=== PATIENT | male | born 1945 | race Caucasian/White ===

== ENCOUNTER 2023-09-03 16:00 | Outpatient (CLI) | payer BC | END 2023-09-03 16:01 | disposition home or self-care (01) | LOC: SLEEPLAB 16:00 | PROVIDERS: ATTEND Internal Medicine | DX: G47.33 Obstructive sleep apnea (adult) (pediatric) (principal); G47.00 Insomnia, unspecified; I48.91 Unspecified atrial fibrillation; I10 Essential (primary) hypertension | CPT/HCPCS: 95800 ==